=== PATIENT | male | born 1985 | race Caucasian/White ===

== ENCOUNTER 2019-02-11 09:33 | Emergency (ER) | payer OTHER ==
[2019-02-11 09:45] VITALS: RESP 18; TEMP 98.4
[2019-02-11] MEDS ORDERED: SODIUM CHLORIDE 0.9% 1,000 ML IV STA (10:00)
[2019-02-11] MEDS ORDERED: levETIRAcetam IV 1,000 MG in SALINE 1 100ML.BAG IVPB STA (10:00)
--- NOTE | 2019-02-11 10:03 | ED ---
Seizure HPI - General Chief Complaint: Seizure Stated Complaint: Seizure Time Seen by Provider: 02/11/19 09:46 Source: patient, family, EMS, RN notes reviewed, old records reviewed Mode of arrival: EMS Limitations: no limitations - History of Present Illness Initial Comments: Patient is a 33-year-old male with a history of seizure disorder. Patient was previously on Keppra but has been off of it for 2 years. Patient reports that he also takes Xanax daily. He states that he ran out of his medication a few days ago, and hasn't had it for 3 days. Patient had a witnessed tonic-clonic seizure for 1-2 minutes by his mother. He is not his head he was lying on the couch at the time. Patient has had no recent fevers or chills. Patient reports that he has been buying some Xanax off of the street to eye. Patient reports that he does not have a neurologist at this time. Her ports that he's been out of his Xanax he has been having some withdrawal symptoms including shakiness. Patient reports that he takes 1 mg of Xanax in the morning and 1 in the afternoon. - Related Data Home Medications Medication Instructions Recorded Confirmed ALPRAZolam [Xanax] 1 mg PO BID 02/11/19 02/11/19 Buprenorphine HCl/Naloxone HCl 0.25 film SL BID 02/11/19 02/11/19 [Suboxone 8 mg-2 mg Sl Film] Previous Rx's Medication Instructions Recorded levETIRAcetam [Keppra] 500 mg PO TID #21 tab 02/11/19 Allergies Allergy/AdvReac Type Severity Reaction Status Date / Time No Known Allergies Allergy Unverified 02/11/19 09:59 Review of Systems ROS Statement: Those systems with pertinent positive or pertinent negative responses have been documented in the HPI. ROS Other: All systems not noted in ROS Statement are negative. General Exam - General Exam Comments Initial Comments: 33-year-old male. Alert and oriented 3. No significant distress. Limitations: no limitations General appearance: alert, in no apparent distress Head exam: Present: atraumatic, normocephalic, normal inspection Eye exam: Present: normal appearance, PERRL, EOMI. Absent: scleral icterus, conjunctival injection, periorbital swelling ENT exam: Present: normal exam, mucous membranes moist Neck exam: Present: normal inspection. Absent: tenderness, meningismus, lymphadenopathy Respiratory exam: Present: normal lung sounds bilaterally. Absent: respiratory distress, wheezes, rales, rhonchi, stridor Cardiovascular Exam: Present: regular rate, normal rhythm, normal heart sounds. Absent: systolic murmur, diastolic murmur, rubs, gallop, clicks GI/Abdominal exam: Present: soft, normal bowel sounds. Absent: distended, tenderness, guarding, rebound, rigid Extremities exam: Present: normal inspection, full ROM, normal capillary refill. Absent: tenderness, pedal edema, joint swelling, calf tenderness Back exam: Present: normal inspection Neurological exam: Present: alert, oriented X3, CN II-XII intact Psychiatric exam: Present: normal affect, normal mood Course Vital Signs 02/11/19 02/11/19 02/11/19 09:38 10:00 10:30 Temperature 98.4 F Pulse Rate 67 61 57 L Respiratory 18 18 18 Rate Blood Pressure 125/77 125/77 125/77 O2 Sat by Pulse 100 96 98 Oximetry 02/11/19 11:00 Temperature Pulse Rate 57 L Respiratory 18 Rate Blood Pressure 127/76 O2 Sat by Pulse 97 Oximetry Medical Decision Making - Medical Decision Making Patient is a 33-year-old male with history of seizure seizure disorder, as well as history of Xanax use. He presents today after one to 2 minute tonic-clonic seizure. She did not has had. Denies any other pain or injury at this time. He is alert and oriented. His mother witnessed the seizure. Patient reportedly has been out of his Xanax for the past 3 days. He reports that sometimes he buys from the street. He normally has as prescribed by his PCP. The symptoms was given a loading dose of Keppra for a CCU short. He has been off of Keppra for the past 2 years. He reports he took himself off of that. Patient at this time has normal lab work. On EKG. Otherwise appears well reevaluation. We'll discharge the Patient with close follow-up with PCP. Angela steinberg prescription for Keppra until PCP follow-up. - Lab Data Result diagrams: 02/11/19 09:40 02/11/19 09:40 Lab Results 02/11/19 02/11/19 02/11/19 Range/Units 09:40 09:40 10:39 WBC 9.3 (3.8-10.6) k/uL RBC 4.92 (4.30-5.90) m/uL Hgb 13.9 (13.0-17.5) gm/dL Hct 42.1 (39.0-53.0) % MCV 85.7 (80.0-100.0) fL MCH 28.4 (25.0-35.0) pg MCHC 33.1 (31.0-37.0) g/dL RDW 12.7 (11.5-15.5) % Plt Count 203 (150-450) k/uL Neutrophils % 63 % Lymphocytes % 24 % Monocytes % 9 % Eosinophils % 2 % Basophils % 0 % Neutrophils # 5.8 (1.3-7.7) k/uL Lymphocytes # 2.3 (1.0-4.8) k/uL Monocytes # 0.8 (0-1.0) k/uL Eosinophils # 0.2 (0-0.7) k/uL Basophils # 0.0 (0-0.2) k/uL Sodium 140 (137-145) mmol/L Potassium 4.5 (3.5-5.1) mmol/L Chloride 107 (98-107) mmol/L Carbon Dioxide 26 (22-30) mmol/L Anion Gap 7 mmol/L BUN 14 (9-20) mg/dL Creatinine 0.86 (0.66-1.25) mg/dL Est GFR (CKD-EPI)AfAm >90 (>60 ml/min/1.73 sqM) Est GFR (CKD-EPI)NonAf >90 (>60 ml/min/1.73 sqM) Glucose 103 H (74-99) mg/dL Calcium 9.5 (8.4-10.2) mg/dL Total Bilirubin 0.7 (0.2-1.3) mg/dL AST 29 (17-59) U/L ALT 16 L (21-72) U/L Alkaline Phosphatase 75 (38-126) U/L Total Protein 6.7 (6.3-8.2) g/dL Albumin 4.1 (3.5-5.0) g/dL Urine Opiates Screen Not Detected (NotDetected) Ur Oxycodone Screen Not Detected (NotDetected) Urine Methadone Screen Not Detected (NotDetected) Ur Propoxyphene Screen Not Detected (NotDetected) Ur Barbiturates Screen Not Detected (NotDetected) U Tricyclic Antidepress Not Detected (NotDetected) Ur Phencyclidine Scrn Not Detected (NotDetected) Ur Amphetamines Screen Not Detected (NotDetected) U Methamphetamines Scrn Not Detected (NotDetected) U Benzodiazepines Scrn Detected H (NotDetected) Urine Cocaine Screen Not Detected (NotDetected) U Marijuana (THC) Screen Detected H (NotDetected) 02/11/19 10:47 EKG shows sinus break her, otherwise normal EKG. Ventricular rate of 57 bpm. Verbal is 140 ms. QT QTc is 442/439 ms. QRS duration is 100 ms. Disposition Clinical Impression: History of benzodiazepine use, Withdrawal seizures Disposition: ADMITTED IP TO THIS [facility] Condition: Stable Instructions (If sedation given, give patient instructions): Recurrent Seizures in Adults (ED) Additional Instructions: Patient advised to follow-up with primary care physician. Return to the emergency department if any alarming signs or symptoms occur. Take the Keppra as prescribed. Recommend following up with PCP in regards to benzodiazepine use. Prescriptions: levETIRAcetam [Keppra] 500 mg PO TID #21 tab Is patient prescribed a controlled substance at d/c from ED?: No Referrals: Rodriguez Sargent MD [Primary Care Provider] - 1-2 days Time of Disposition: 11:34
[2019-02-11 11:04] LABS: Amphetamine Screen,Urine Not Detected (NotDetected); Barbiturate Screen,Urine Not Detected (NotDetected); Benzodiazepines Screen,Urine Detected (NotDetected); Cocaine Screen,Urine Not Detected (NotDetected); Methadone Screen, Urine Not Detected (NotDetected); Opiate Screen,Urine Not Detected (NotDetected); Oxycodone Screen, Urine Not Detected (NotDetected); Phencyclidine Screen,Urine Not Detected (NotDetected); Tricyclic Antidepressant,Urine Not Detected (NotDetected); Urn Cannabinoid Scrn Detected (NotDetected)
[2019-02-11 11:06] LABS: ALT 16 U/L (21-72); AST 29 U/L (17-59); African American GFR (CKD) >90 (>60 ml/min/1.73 sqM); Albumin 4.1 g/dL (3.5-5.0); Alkaline Phosphatase 75 U/L (38-126); Anion Gap 7 mmol/L; Blood Urea Nitrogen 14 mg/dL (9-20); Calcium 9.5 mg/dL (8.4-10.2); Carbon Dioxide 26 mmol/L (22-30); Chloride 107 mmol/L (98-107); Glucose 103 mg/dL (74-99); Sodium 140 mmol/L (137-145); Total Bilirubin 0.7 mg/dL (0.2-1.3); Total Protein 6.7 g/dL (6.3-8.2)
[2019-02-11 11:08] LABS: Potassium 4.5 mmol/L (3.5-5.1)
[2019-02-11 11:17] LABS: Basophils % (A) 0 %; Eosinophils # (A) 0.2 k/uL (0-0.7); Eosinophils % (A) 2 %; HCT 42.1 % (39.0-53.0); HGB 13.9 gm/dL (13.0-17.5); Lymphocytes # (A) 2.3 k/uL (1.0-4.8); Lymphocytes % (A) 24 %; MCH 28.4 pg (25.0-35.0); MCHC 33.1 g/dL (31.0-37.0); MCV 85.7 fL (80.0-100.0); Mean Platelet Volume 7.5; Monocytes # (A) 0.8 k/uL (0-1.0); Monocytes % (A) 9 %; Neutrophils # (A) 5.8 k/uL (1.3-7.7); Neutrophils % (A) 63 %; Platelet Count 203 k/uL (150-450); RBC 4.92 m/uL (4.30-5.90); RDW 12.7 % (11.5-15.5); WBC 9.3 k/uL (3.8-10.6)
[2019-02-11 11:52] VITALS: BP 126/75; PULSE 60
== END 2019-02-11 11:55 | disposition other institution (70) ==
LOC: EC 09:33
DX: G40.909 Epilepsy, unspecified, not intractable, without status epilepticus (principal); Z86.59 Personal history of other mental and behavioral disorders; Z79.899 Other long term (current) drug therapy
CPT/HCPCS: 36415; 93005; 80053; 85025; 80306; 99285; 96365; J1953

== ENCOUNTER 2019-02-14 15:31 | Emergency (ER) | payer OTHER ==
[2019-02-14 15:37] VITALS: RESP 16
[2019-02-14] MEDS ORDERED: levETIRAcetam 500 MG TAB PO STA (15:45)
--- NOTE | 2019-02-14 15:49 | ED ---
General Adult HPI - General Chief complaint: Seizure Stated complaint: Seizure Time Seen by Provider: 02/14/19 15:38 Source: EMS Mode of arrival: EMS Limitations: no limitations - History of Present Illness Initial comments: Patient is a 33-year-old male with a history of seizure disorder presents with a chief complaint of seizure. The patient states that he does not remember the event, with reportedly had 3-5 minutes seizure, single episode. Patient states the possibilities are Xanax withdraw though he states he last took Xanax was several weeks ago, or stopping his Keppra. Patient says he is trying to stop his medications but is not likely that they make him feel. He says he was diagnosed with seizure disorder at 16 years old. His last seizure was in June. Patient states that he cannot remember the name of his neurologist. Patient denies any other inciting incidents this. - Related Data Home Medications Medication Instructions Recorded Confirmed ALPRAZolam [Xanax] 1 mg PO BID 02/11/19 02/14/19 Buprenorphine HCl/Naloxone HCl 0.25 film SL BID 02/11/19 02/14/19 [Suboxone 8 mg-2 mg Sl Film] Previous Rx's Medication Instructions Recorded levETIRAcetam [Keppra] 500 mg PO TID #21 tab 02/11/19 Allergies Allergy/AdvReac Type Severity Reaction Status Date / Time No Known Allergies Allergy Verified 02/14/19 16:29 Review of Systems ROS Statement: Those systems with pertinent positive or pertinent negative responses have been documented in the HPI. ROS Other: All systems not noted in ROS Statement are negative. Past Medical History Past Medical History: Seizure Disorder History of Any Multi-Drug Resistant Organisms: None Reported Past Surgical History: No Surgical Hx Reported Past Psychological History: No Psychological Hx Reported Smoking Status: Current every day smoker Past Alcohol Use History: Occasional Past Drug Use History: Marijuana General Exam Limitations: no limitations General appearance: alert, in no apparent distress Head exam: Present: atraumatic, normocephalic Eye exam: Present: normal appearance ENT exam: Present: normal exam Neck exam: Present: normal inspection Respiratory exam: Present: normal lung sounds bilaterally. Absent: respiratory distress, wheezes Cardiovascular Exam: Present: regular rate, normal rhythm GI/Abdominal exam: Present: soft. Absent: distended, tenderness Rectal exam: Present: deferred Extremities exam: Present: normal inspection Back exam: Present: normal inspection Neurological exam: Present: alert, oriented X3, CN II-XII intact Psychiatric exam: Present: normal affect, normal mood Skin exam: Present: warm, dry, intact Course Vital Signs 02/14/19 02/14/19 02/14/19 15:33 15:40 15:50 Pulse Rate 80 77 Respiratory 16 18 Rate Blood Pressure 155/89 155/89 147/88 O2 Sat by Pulse 98 98 Oximetry 02/14/19 02/14/19 02/14/19 16:00 17:00 17:30 Pulse Rate 80 90 77 Respiratory 20 20 16 Rate Blood Pressure 147/88 161/89 157/83 O2 Sat by Pulse 99 Oximetry 02/14/19 17:50 Pulse Rate 77 Respiratory 19 Rate Blood Pressure 140/90 O2 Sat by Pulse 98 Oximetry Medical Decision Making - Medical Decision Making Patient presents with chief complaint of seizure. On initial evaluation, vitals are stable, patient is in no acute distress. He is awake and alert, it is questions appropriately. Patient states that he tried to self wean himself from Keppra. He denies any other constitutional symptoms. Patient will be evaluated basic labs including urinalysis, and chest x-ray. He was given his regular dose of Keppra in the emergency department. 5:19 PM Lab evaluation this patient is unremarkable. On reevaluation, the patient now has family and friends with him. The patient states that he needs to go somewhere where he can detox. Patient now admitting to illicit drug use including Suboxone, Xanax which she is getting off the street. Patient will be evaluated by CPS. The family states they already have a plan to get him into rehab which would require him to go to police station [facility] for intake. I stated that we will consult our licensed master social worker to see if we have other resources here to help facilitate. 7:06 PM Patient was evaluated by CPS licensed master social worker. At this time, the safest plan is to discharge the patient with his family so that he can receive treatment at [facility]. They are in a plan set. Patient will be discharged with family. - Lab Data Result diagrams: 02/14/19 15:40 02/14/19 15:40 Lab Results 02/14/19 02/14/19 02/14/19 Range/Units 15:40 15:40 15:40 WBC 12.4 H (3.8-10.6) k/uL RBC 4.92 (4.30-5.90) m/uL Hgb 13.7 (13.0-17.5) gm/dL Hct 41.7 (39.0-53.0) % MCV 84.7 (80.0-100.0) fL MCH 27.9 (25.0-35.0) pg MCHC 32.9 (31.0-37.0) g/dL RDW 12.7 (11.5-15.5) % Plt Count 230 (150-450) k/uL Neutrophils % 73 % Lymphocytes % 18 % Monocytes % 6 % Eosinophils % 0 % Basophils % 0 % Neutrophils # 9.1 H (1.3-7.7) k/uL Lymphocytes # 2.3 (1.0-4.8) k/uL Monocytes # 0.8 (0-1.0) k/uL Eosinophils # 0.1 (0-0.7) k/uL Basophils # 0.0 (0-0.2) k/uL Sodium 139 (137-145) mmol/L Potassium 3.9 (3.5-5.1) mmol/L Chloride 104 (98-107) mmol/L Carbon Dioxide 22 (22-30) mmol/L Anion Gap 13 mmol/L BUN 20 (9-20) mg/dL Creatinine 0.89 (0.66-1.25) mg/dL Est GFR (CKD-EPI)AfAm >90 (>60 ml/min/1.73 sqM) Est GFR (CKD-EPI)NonAf >90 (>60 ml/min/1.73 sqM) Glucose 132 H (74-99) mg/dL Calcium 9.8 (8.4-10.2) mg/dL Urine Color Yellow Urine Appearance Clear (Clear) Urine pH 5.5 (5.0-8.0) Ur Specific [place] 1.021 (1.001-1.035) Urine Protein Trace H (Negative) Urine Glucose (UA) Negative (Negative) Urine Ketones 1+ H (Negative) Urine Blood Trace H (Negative) Urine Nitrite Negative (Negative) Urine Bilirubin Negative (Negative) Urine Urobilinogen 3.0 (<2.0) mg/dL Ur Leukocyte Esterase Negative (Negative) Urine WBC 1 (0-5) /hpf Amorphous Sediment Rare H (None) /hpf Hyaline Casts 13 H (0-2) /lpf Urine Mucus Rare H (None) /hpf Disposition Clinical Impression: Breakthrough seizure, Polysubstance abuse Disposition: HOME SELF-CARE Condition: Good Instructions (If sedation given, give patient instructions): Recurrent Seizures in Adults (ED) Is patient prescribed a controlled substance at d/c from ED?: No Referrals: Rodriguez Sargent MD [Primary Care Provider] - 1-2 days
[2019-02-14 16:03] LABS: Basophils % (A) 0 %; Eosinophils # (A) 0.1 k/uL (0-0.7); Eosinophils % (A) 0 %; HCT 41.7 % (39.0-53.0); HGB 13.7 gm/dL (13.0-17.5); Lymphocytes # (A) 2.3 k/uL (1.0-4.8); Lymphocytes % (A) 18 %; MCH 27.9 pg (25.0-35.0); MCHC 32.9 g/dL (31.0-37.0); MCV 84.7 fL (80.0-100.0); Mean Platelet Volume 7.3; Monocytes # (A) 0.8 k/uL (0-1.0); Monocytes % (A) 6 %; Neutrophils # (A) 9.1 k/uL (1.3-7.7); Neutrophils % (A) 73 %; Platelet Count 230 k/uL (150-450); RBC 4.92 m/uL (4.30-5.90); RDW 12.7 % (11.5-15.5); WBC 12.4 k/uL (3.8-10.6)
[2019-02-14 16:11] LABS: Potassium 3.9 mmol/L (3.5-5.1)
[2019-02-14 16:12] LABS: African American GFR (CKD) >90 (>60 ml/min/1.73 sqM); Amorphous Sediment,Urine Rare /hpf; Anion Gap 13 mmol/L; Appearance,Urine Clear (Clear); Bilirubin,Urine Negative (Negative); Blood Urea Nitrogen 20 mg/dL (9-20); Blood,Urine Trace (Negative); Calcium 9.8 mg/dL (8.4-10.2); Carbon Dioxide 22 mmol/L (22-30); Chloride 104 mmol/L (98-107); Color,Urine Yellow; Glucose 132 mg/dL (74-99); Glucose,Urine (UA) Negative (Negative); Hyaline Casts,Urine 13 /lpf (0-2); Ketones,Urine 1+ (Negative); Leukocyte Esterase,Urine Negative (Negative); Mucus,Urine Rare /hpf; Nitrite,Urine Negative (Negative); PH, Urine 5.5 (5.0-8.0); Protein,Urine Trace (Negative); Sodium 139 mmol/L (137-145); Specific Gravity,Urine 1.021 (1.001-1.035); WBC,Urine 1 /hpf (0-5)
--- NOTE | 2019-02-14 16:29 | XR ---
EXAMINATION TYPE: XR chest 2V DATE OF EXAM: 02/14/2019 COMPARISON: 10/18/2009 HISTORY: Seizure TECHNIQUE: Frontal and lateral views of the chest are obtained. FINDINGS: Heart and mediastinum are normal. Lungs are clear. Diaphragm is normal. There are chest le ads. Bony thorax appears normal. IMPRESSION: Normal chest. No change.
[2019-02-14] MEDS ORDERED: chlordiazePOXIDE 25 MG CAP PO STA (17:18)
[2019-02-14] MEDS ORDERED: cloNIDine HCL 0.2 MG TAB PO STA (17:18)
[2019-02-14 19:43] VITALS: BP 138/78; PULSE 74; TEMP 98.1
== END 2019-02-14 19:27 | disposition home or self-care (01) ==
LOC: EC 15:31
DX: G40.909 Epilepsy, unspecified, not intractable, without status epilepticus (principal); F19.10 Other psychoactive substance abuse, uncomplicated; F17.200 Nicotine dependence, unspecified, uncomplicated; Z79.899 Other long term (current) drug therapy
CPT/HCPCS: 36415; 71046; 80048; 81001; 85025; 99284

== ENCOUNTER 2019-10-11 20:42 | Emergency (ER) | payer OTHER ==
[2019-10-11] MEDS ORDERED: ALPRAZolam 0.25 MG TAB PO STA (20:59)
--- NOTE | 2019-10-11 21:01 | ED ---
General Adult HPI - General Chief complaint: Anxiety Stated complaint: Anxiety Time Seen by Provider: 10/11/19 20:50 Source: patient Mode of arrival: ambulatory Limitations: no limitations - History of Present Illness Initial comments: Dictation was produced using [employer] dictation software. please excuse any grammatical, word or spelling errors. Chief Complaint: 34-year-old male presents with anxiety reaction. History of Present Illness: Patient is a 34-year-old male he states that he has a couple hours of anxiety. Patient states he went to the gym and 8. He states that after that he felt some pain. He localizes the pain to his substernal chest with radiation to the bilateral lateral thoraces. Denies any radiation to the shoulders or jaw. No radiation down any extremities. No associated diaphoresis. Patient states his pain was little more severe prior to arrival however it's improved. He still states that he feels some pressure states that it is not worse with deep inspiration. Patient denies any cardiac history. He states he has history of anxiety. He has been on BuSpar and Xanax several years ago prescribed by his primary care physician. He states that his symptoms today are typical of his anxiety symptoms. Reports that his symptoms make him feel short of breath. The ROS documented in this emergency department record has been reviewed and confirmed by me. Those systems with pertinent positive or negative responses have been documented in the HPI. All other systems are other negative and/or noncontributory. PHYSICAL EXAM: General Impression: Alert and oriented x3, not in acute distress HEENT: Normocephalic atraumatic, extra-ocular movements intact, pupils equal and reactive to light bilaterally, mucous membranes moist. Cardiovascular: Heart regular rate and rhythm, S1&S2 audible, no murmurs, rubs or gallops Chest: Lungs clear to auscultation bilaterally, no rhonchi, no wheeze, no rales Abdomen: Bowel sounds present, abdomen soft, non-tender, non-distended, no organomegaly Musculoskeletal: Pulses present and equal in all extremities, no peripheral edema Motor: no focal deficits noted Neurological: CN II-XII grossly intact, no focal motor or sensory deficits noted Skin: Intact with no visualized rashes Psych: Normal affect and mood ED course: 34-year-old male presents with chest pain, shortness of breath. He states that his symptoms are typical of his anxiety.. Signs upon arrival are within acceptable limits. Clinical presentation concerning for atypical chest pain with typical features. Lab data evaluation obtained. CBC, coag panel, metabolic panel is unremarkable. troponin is negative. Chest x-ray is unremarkable. Patient reevaluated bedside. Patient reports for full improvement of symptoms. Patient will be discharged. Patient told to follow-up with primary care physician. Return parameters discussed. No high-risk features. EKG interpretation: Ventricular rate 84, normal sinus rhythm,. Interval 146, QRS 106, QTC 456. No OR prolongation, no QTC prolongation, no ST or T-wave changes noted. EKG compared to 02/11/2019 showing no changes. Overall, this EKG is unremarkable - Related Data Home Medications Medication Instructions Recorded Confirmed ALPRAZolam [Xanax] 1 mg PO BID 02/11/19 02/14/19 Buprenorphine HCl/Naloxone HCl 0.25 film SL BID 02/11/19 02/14/19 [Suboxone 8 mg-2 mg Sl Film] Previous Rx's Medication Instructions Recorded levETIRAcetam [Keppra] 500 mg PO TID #21 tab 02/11/19 Penicillin V Potassium [Pen Vee K] 500 mg PO QID 7 Days #28 tablet 09/04/19 Allergies Allergy/AdvReac Type Severity Reaction Status Date / Time No Known Allergies Allergy Verified 10/11/19 20:49 Review of Systems ROS Statement: Those systems with pertinent positive or pertinent negative responses have been documented in the HPI. ROS Other: All systems not noted in ROS Statement are negative. Past Medical History Past Medical History: Seizure Disorder History of Any Multi-Drug Resistant Organisms: None Reported Past Surgical History: No Surgical Hx Reported Past Psychological History: Anxiety Smoking Status: Current every day smoker Past Alcohol Use History: None Reported Past Drug Use History: None Reported General Exam Limitations: no limitations Course Vital Signs 10/11/19 20:43 Temperature 98.4 F Pulse Rate 93 Respiratory 17 Rate Blood Pressure 173/70 O2 Sat by Pulse 98 Oximetry Medical Decision Making - Lab Data Result diagrams: 10/11/19 21:10 10/11/19 21:10 Lab Results 10/11/19 10/11/19 10/11/19 Range/Units 21:10 21:10 21:10 WBC 8.8 (3.8-10.6) k/uL RBC 4.76 (4.30-5.90) m/uL Hgb 13.5 (13.0-17.5) gm/dL Hct 40.5 (39.0-53.0) % MCV 85.1 (80.0-100.0) fL MCH 28.4 (25.0-35.0) pg MCHC 33.4 (31.0-37.0) g/dL RDW 12.2 (11.5-15.5) % Plt Count 224 (150-450) k/uL Neutrophils % 63 % Lymphocytes % 27 % Monocytes % 5 % Eosinophils % 2 % Basophils % 0 % Neutrophils # 5.5 (1.3-7.7) k/uL Lymphocytes # 2.4 (1.0-4.8) k/uL Monocytes # 0.5 (0-1.0) k/uL Eosinophils # 0.2 (0-0.7) k/uL Basophils # 0.0 (0-0.2) k/uL PT 10.1 (9.0-12.0) sec INR 1.0 (<1.2) APTT 25.6 (22.0-30.0) sec Sodium 140 (137-145) mmol/L Potassium 3.8 (3.5-5.1) mmol/L Chloride 104 (98-107) mmol/L Carbon Dioxide 26 (22-30) mmol/L Anion Gap 10 mmol/L BUN 21 H (9-20) mg/dL Creatinine 1.08 (0.66-1.25) mg/dL Est GFR (CKD-EPI)AfAm >90 (>60 ml/min/1.73 sqM) Est GFR (CKD-EPI)NonAf >90 (>60 ml/min/1.73 sqM) Glucose 107 H (74-99) mg/dL Calcium 9.6 (8.4-10.2) mg/dL Magnesium 1.9 (1.6-2.3) mg/dL Total Bilirubin 0.3 (0.2-1.3) mg/dL AST 34 (17-59) U/L ALT 21 (4-49) U/L Alkaline Phosphatase 112 (38-126) U/L Troponin I (0.000-0.034) ng/mL Total Protein 7.2 (6.3-8.2) g/dL Albumin 4.6 (3.5-5.0) g/dL 10/11/19 Range/Units 21:10 WBC (3.8-10.6) k/uL RBC (4.30-5.90) m/uL Hgb (13.0-17.5) gm/dL Hct (39.0-53.0) % MCV (80.0-100.0) fL MCH (25.0-35.0) pg MCHC (31.0-37.0) g/dL RDW (11.5-15.5) % Plt Count (150-450) k/uL Neutrophils % % Lymphocytes % % Monocytes % % Eosinophils % % Basophils % % Neutrophils # (1.3-7.7) k/uL Lymphocytes # (1.0-4.8) k/uL Monocytes # (0-1.0) k/uL Eosinophils # (0-0.7) k/uL Basophils # (0-0.2) k/uL PT (9.0-12.0) sec INR (<1.2) APTT (22.0-30.0) sec Sodium (137-145) mmol/L Potassium (3.5-5.1) mmol/L Chloride (98-107) mmol/L Carbon Dioxide (22-30) mmol/L Anion Gap mmol/L BUN (9-20) mg/dL Creatinine (0.66-1.25) mg/dL Est GFR (CKD-EPI)AfAm (>60 ml/min/1.73 sqM) Est GFR (CKD-EPI)NonAf (>60 ml/min/1.73 sqM) Glucose (74-99) mg/dL Calcium (8.4-10.2) mg/dL Magnesium (1.6-2.3) mg/dL Total Bilirubin (0.2-1.3) mg/dL AST (17-59) U/L ALT (4-49) U/L Alkaline Phosphatase (38-126) U/L Troponin I <0.012 (0.000-0.034) ng/mL Total Protein (6.3-8.2) g/dL Albumin (3.5-5.0) g/dL Disposition Clinical Impression: Acute anxiety, Chest pain Disposition: HOME SELF-CARE Instructions (If sedation given, give patient instructions): Generalized Anxiety Disorder (ED), Chest Pain (ED) Additional Instructions: Today you are evaluated for chest pain. He do not have any high-risk features. Your workup was negative. Please follow-up with primary care physician. Return to the emergency Department with any worsening symptoms. Is patient prescribed a controlled substance at d/c from ED?: No Referrals: Rodriguez Sargent MD [Primary Care Provider] - 1-2 days Time of Disposition: 21:54
[2019-10-11 21:24] LABS: Basophils % (A) 0 %; Eosinophils # (A) 0.2 k/uL (0-0.7); Eosinophils % (A) 2 %; HCT 40.5 % (39.0-53.0); HGB 13.5 gm/dL (13.0-17.5); Lymphocytes # (A) 2.4 k/uL (1.0-4.8); Lymphocytes % (A) 27 %; MCH 28.4 pg (25.0-35.0); MCHC 33.4 g/dL (31.0-37.0); MCV 85.1 fL (80.0-100.0); Mean Platelet Volume 7.9; Monocytes # (A) 0.5 k/uL (0-1.0); Monocytes % (A) 5 %; Neutrophils # (A) 5.5 k/uL (1.3-7.7); Neutrophils % (A) 63 %; Platelet Count 224 k/uL (150-450); RBC 4.76 m/uL (4.30-5.90); RDW 12.2 % (11.5-15.5); WBC 8.8 k/uL (3.8-10.6)
[2019-10-11 21:32] LABS: ALT 21 U/L (4-49); AST 34 U/L (17-59); African American GFR (CKD) >90 (>60 ml/min/1.73 sqM); Albumin 4.6 g/dL (3.5-5.0); Alkaline Phosphatase 112 U/L (38-126); Anion Gap 10 mmol/L; Blood Urea Nitrogen 21 mg/dL (9-20); Calcium 9.6 mg/dL (8.4-10.2); Carbon Dioxide 26 mmol/L (22-30); Chloride 104 mmol/L (98-107); Glucose 107 mg/dL (74-99); Magnesium 1.9 mg/dL (1.6-2.3); Non-African American GFR(CKD) >90 (>60 ml/min/1.73 sqM); Potassium 3.8 mmol/L (3.5-5.1); Sodium 140 mmol/L (137-145); Total Bilirubin 0.3 mg/dL (0.2-1.3); Total Protein 7.2 g/dL (6.3-8.2)
[2019-10-11 21:36] LABS: Partial Thromboplastin Time 25.6 sec (22.0-30.0); Prothrombin Time 10.1 sec (9.0-12.0)
--- NOTE | 2019-10-11 21:38 | XR ---
EXAMINATION TYPE: XR chest 2V DATE OF EXAM: 10/11/2019 COMPARISON: 02/14/2019 HISTORY: Chest pain TECHNIQUE: FINDINGS: Heart and mediastinum are normal. Lungs are clear. Diaphragm is normal. Bony thorax appears normal. IMPRESSION: Normal chest. No change.
[2019-10-11 22:09] VITALS: BP 124/76; PULSE 64; RESP 16; TEMP 97.6
== END 2019-10-11 22:08 | disposition home or self-care (01) ==
LOC: EC 20:42
DX: F41.9 Anxiety disorder, unspecified (principal); R07.89 Other chest pain; R06.02 Shortness of breath; F17.200 Nicotine dependence, unspecified, uncomplicated; Z79.899 Other long term (current) drug therapy
CPT/HCPCS: 36415; 71046; 80053; 83735; 84484; 85025; 85610; 85730; 93005; 99284

== ENCOUNTER 2020-05-28 14:42 | Emergency (ER) | payer BC, OTHER ==
[2020-05-28 14:46] VITALS: BP 150/89; PULSE 84; RESP 18; TEMP 98.3
--- NOTE | 2020-05-28 15:31 | CT ---
EXAMINATION TYPE: CT sinus wo con DATE OF EXAM: 05/28/2020 COMPARISON: CT brain October 18, 2009 HISTORY: Rt facial swelling, started yesterday. No recent dental work CT DLP: 429.7 mGycm. Automated Exposure Control for Dose Reduction was Utilized. TECHNIQUE: CT scan of the sinuses is performed with IV contrast, axial images are obtained, coronal r eformatted images are also reviewed. Patient injected with 100 cc Omnipaque 300. FINDINGS: Mild to moderate mucosal thickening in the right maxillary sinus is now present. [id number] muc osal thickening involving right anterior ethmoid sinuses. Mild mucosal thickening inferior left maxil beatriz sinus. The ostiomeatal complex is occluded on the right on the coronal images. Patency on the l eft is present. Visualized portion of mastoid air cells show no abnormal opacification. The globes are intact bilate rally. Visualized portion of brain is unremarkable. Focal moderate ill-defined fluid and fat stranding along with subcutaneous edema and skin thickening over the right maxillary sinus extending over the right zygoma or cheek extending inferiorly to subma ndibular regions partially imaged. No well-formed fluid collection or drainable abscess. No bony dest ruction. IMPRESSION: Fairly moderate right-sided soft tissue infection and/or cellulitis partially imaged on t his study overlying the right maxillary sinus, maxilla, and buccal region. No drainable fluid collect ion or abscess.
[2020-05-28] MEDS ORDERED: cefTRIAXone 1,000 MG VIAL (IM USE) IM STA (15:53)
--- NOTE | 2020-05-28 16:02 | ED ---
ENT HPI - General Chief complaint: Eye Problems Stated complaint: RT eye swelling Time Seen by Provider: 05/28/20 14:47 Source: patient Mode of arrival: ambulatory Limitations: no limitations - History of Present Illness Initial comments: Patient is a 34-year-old male presenting to the emergency Department with complaints of swelling underneath his right eye since yesterday. Patient states he has had some common cold symptoms over the last few days but then yesterday noticed swelling underneath his right eye and on his right cheek. He states he does not have any really pain there, he denies any fever, chills, nausea, vomiting. He states he does have significant dental caries denies any dental pain or trouble with chewing at this time. He denies having a headache, blurry vision. He denies any facial trauma. He has no further complaints at this time. Upon arrival to the ER, patient is afebrile. - Related Data Home Medications Medication Instructions Recorded Confirmed ALPRAZolam [Xanax] 1 mg PO BID 02/11/19 02/14/19 Buprenorphine HCl/Naloxone HCl 0.25 film SL BID 02/11/19 02/14/19 [Suboxone 8 mg-2 mg Sl Film] Previous Rx's Medication Instructions Recorded levETIRAcetam [Keppra] 500 mg PO TID #21 tab 02/11/19 Penicillin V Potassium [Pen Vee K] 500 mg PO QID 7 Days #28 tablet 09/04/19 Clindamycin HCl 300 mg PO Q8H 7 Days #21 cap 05/28/20 Clindamycin [Cleocin] 150 mg PO Q8H 7 Days #21 capsule 05/28/20 Allergies Allergy/AdvReac Type Severity Reaction Status Date / Time No Known Allergies Allergy Verified 05/28/20 14:46 Review of Systems ROS Statement: Those systems with pertinent positive or pertinent negative responses have been documented in the HPI. ROS Other: All systems not noted in ROS Statement are negative. Past Medical History Past Medical History: Seizure Disorder History of Any Multi-Drug Resistant Organisms: None Reported Past Surgical History: No Surgical Hx Reported Past Psychological History: Anxiety Smoking Status: Never smoker Past Alcohol Use History: None Reported Past Drug Use History: None Reported General Exam - General Exam Comments Initial Comments: GENERAL: Patient is well-developed and well-nourished. Patient is nontoxic and in no acute distress. HEAD: Atraumatic, normocephalic. EYES: Pupils equal round and reactive to light, extraocular movements intact, sclera anicteric, conjunctiva are normal. Eyelids were unremarkable. Patient has moderate swelling underneath the right eye into the right cheek/maxillary area. ENT: TMs normal, nares patent, oropharynx clear without exudates. Moist mucous membranes. Patient has numerous dental caries, poor dental hygiene, no pain with palpation or visible abscess seen. NECK: Normal range of motion, supple without lymphadenopathy or JVD. LUNGS: Unlabored respirations. Breath sounds clear to auscultation bilaterally and equal. No wheezes rales or rhonchi. HEART: Regular rate and rhythm without murmurs, rubs or gallops. ABDOMEN: Soft, nontender, normoactive bowel sounds. No guarding, no rebound. No masses appreciated. : Deferred MUSCULOSKELETAL: Normal extremities with adequate strength and normal range of motion, no pitting or edema. No clubbing or cyanosis. NEUROLOGICAL: Patient is alert and oriented x 3. Normal speech, normal gait. PSYCH: Normal mood, normal affect. SKIN: Warm, Dry, normal turgor, no rashes or lesions noted. Limitations: no limitations Course Vital Signs 05/28/20 14:43 Temperature 98.3 F Pulse Rate 84 Respiratory 18 Rate Blood Pressure 150/89 O2 Sat by Pulse 99 Oximetry Medical Decision Making - Medical Decision Making Patient is a 34-year-old male here for swelling of his right maxillary area since last night. No fevers, his vitals are stable. Patient has little pain with palpation of this area. I did do a CT without contrast which shows moderate cellulitis of the right maxillary area. It is hard to determine if this is sinus related or possibly from his dental caries. I will give him 1 g of Rocephin in the ER and started him on clindamycin to cover for both. Patient is agreement with this plan of care. He is stable for discharge. Strict return parameters were discussed with the patient and he verbalized understanding. Case discussed with Dr. Fallon. Disposition Clinical Impression: Cellulitis of right external cheek, Dental caries Disposition: HOME SELF-CARE Condition: Stable Instructions (If sedation given, give patient instructions): Cellulitis (ED) Additional Instructions: Please return to the Emergency Department if symptoms worsen or any other concerns. CT of the face today reveals cellulitis. Take antibiotics as prescribed, finish all medications. Also taking ibuprofen, apply ice to the area for the swelling. Follow up with PCP and dentist. Prescriptions: Clindamycin [Cleocin] 150 mg PO Q8H 7 Days #21 capsule Clindamycin HCl 300 mg PO Q8H 7 Days #21 cap Is patient prescribed a controlled substance at d/c from ED?: No Referrals: Rodriguez Sargent MD [Primary Care Provider] - 1-2 days
== END 2020-05-28 16:06 | disposition home or self-care (01) ==
LOC: EC 14:42
DX: L03.211 Cellulitis of face (principal); K02.9 Dental caries, unspecified; F41.9 Anxiety disorder, unspecified; Z79.899 Other long term (current) drug therapy
CPT/HCPCS: 70486; 96372; 99283; J0696

== ENCOUNTER 2021-06-03 03:46 | Emergency (ER) | payer BC ==
[2021-06-03 03:57] VITALS: RESP 18
[2021-06-03] MEDS ORDERED: SODIUM CHLORIDE 0.9% 1,000 ML IV ONE (04:32)
[2021-06-03] MEDS ORDERED: AMOXIC-POT CLAV 875-125MG 1 EACH TAB PO STA (04:32)
[2021-06-03] MEDS ORDERED: ONDANSETRON 4 MG/2 ML VIAL IVP STA (04:32)
--- NOTE | 2021-06-03 04:47 | ED ---
Nausea/Vomiting/Diarrhea HPI - General Chief complaint: Nausea/Vomiting/Diarrhea Stated complaint: Vomiting Time Seen by Provider: 06/03/21 04:06 Source: patient Mode of arrival: ambulatory Limitations: no limitations - History of Present Illness Initial comments: Patient is 35-year-old man who has had nausea and vomiting going back approximately 12 hours. He states that now he is to the point where he cannot keep any fluids down. The patient has a little bit of upper abdominal cramping. No change in bowel movements. No hematemesis. In addition, patient notes he believes he has a tooth infection starting. He notes he has multiple caries and now is having some pain to the upper incisors. There has also been swelling for the past couple of days. No fever or chills. MD complaint: nausea, vomiting Onset/Timin -: hour(s) Description of Vomiting: food contents Associated Abdominal Pain: Yes Location: epigastric Severity: mild Quality: cramping Consistency: intermittent Improves with: none Worsens with: vomiting Associated Symptoms: denies other symptoms - Related Data Home Medications Medication Instructions Recorded Confirmed ALPRAZolam [Xanax] 1 mg PO BID 02/11/19 02/14/19 Buprenorphine HCl/Naloxone HCl 0.25 film SL BID 02/11/19 02/14/19 [Suboxone 8 mg-2 mg Sl Film] Previous Rx's Medication Instructions Recorded levETIRAcetam [Keppra] 500 mg PO TID #21 tab 02/11/19 Penicillin V Potassium [Pen Vee K] 500 mg PO QID 7 Days #28 tablet 09/04/19 Clindamycin HCl 300 mg PO Q8H 7 Days #21 cap 05/28/20 Clindamycin [Cleocin] 150 mg PO Q8H 7 Days #21 capsule 05/28/20 Amoxicillin/Potassium Clav 1 tab PO Q12HR 1 Days #14 tab 06/03/21 [Augmentin 875-125 Tablet] Ondansetron Odt [Zofran ODT] 4 mg PO Q8HR PRN #10 tab 06/03/21 Allergies Allergy/AdvReac Type Severity Reaction Status Date / Time No Known Allergies Allergy Verified 06/03/21 03:57 Review of Systems ROS Statement: Those systems with pertinent positive or pertinent negative responses have been documented in the HPI. ROS Other: All systems not noted in ROS Statement are negative. Constitutional: Denies: fever, chills Eyes: Denies: eye pain, vision change ENT: Reports: dental pain. Denies: throat pain, congestion Respiratory: Denies: cough, dyspnea Cardiovascular: Denies: chest pain, palpitations, edema Gastrointestinal: Reports: abdominal pain, nausea, vomiting. Denies: diarrhea, constipation, melena, hematochezia Genitourinary: Denies: dysuria, hematuria, testicular pain, testicular mass Musculoskeletal: Denies: back pain Skin: Denies: rash Neurological: Denies: headache, weakness Past Medical History Past Medical History: Seizure Disorder History of Any Multi-Drug Resistant Organisms: None Reported Past Surgical History: No Surgical Hx Reported Past Psychological History: Anxiety Smoking Status: Current every day smoker Past Alcohol Use History: None Reported Past Drug Use History: Marijuana General Exam Limitations: no limitations General appearance: alert, in no apparent distress Head exam: Present: atraumatic, normocephalic Eye exam: Present: normal appearance Neck exam: Present: normal inspection, full ROM. Absent: tenderness Respiratory exam: Present: normal lung sounds bilaterally. Absent: respiratory distress, wheezes, rales, rhonchi, stridor Cardiovascular Exam: Present: regular rate, normal rhythm, normal heart sounds. Absent: systolic murmur, diastolic murmur, rubs, gallop GI/Abdominal exam: Present: soft. Absent: distended, tenderness, guarding, rebound, rigid, mass Extremities exam: Present: normal inspection, normal capillary refill. Absent: pedal edema, calf tenderness Back exam: Present: normal inspection. Absent: CVA tenderness (R), CVA tenderness (L) Neurological exam: Present: alert Skin exam: Present: warm, dry, intact, normal color. Absent: rash Course Vital Signs 06/03/21 06/03/21 03:53 06:30 Temperature 99.2 F 98.9 F Pulse Rate 91 89 Respiratory 18 18 Rate Blood Pressure 113/72 118/77 O2 Sat by Pulse 99 99 Oximetry Medical Decision Making - Medical Decision Making Patient has had control symptoms with medications here. Patient does have dental infection but no organized abscess yet. We'll start antibiotics and have patient with close follow-up, discussed return parameters here otherwise to follow with oral surgeon as long as there is been no improvement. - Lab Data Result diagrams: 06/03/21 04:49 06/03/21 04:49 Lab Results 06/03/21 06/03/21 Range/Units 04:49 04:49 WBC 14.5 H (3.8-10.6) k/uL RBC 4.40 (4.30-5.90) m/uL Hgb 13.6 (13.0-17.5) gm/dL Hct 39.6 (39.0-53.0) % MCV 89.9 (80.0-100.0) fL MCH 30.9 (25.0-35.0) pg MCHC 34.4 (31.0-37.0) g/dL RDW 13.1 (11.5-15.5) % Plt Count 258 (150-450) k/uL MPV 7.6 Neutrophils % 84 % Lymphocytes % 9 % Monocytes % 6 % Eosinophils % 1 % Basophils % 0 % Neutrophils # 12.1 H (1.3-7.7) k/uL Lymphocytes # 1.3 (1.0-4.8) k/uL Monocytes # 0.8 (0-1.0) k/uL Eosinophils # 0.1 (0-0.7) k/uL Basophils # 0.0 (0-0.2) k/uL Sodium 140 (137-145) mmol/L Potassium 3.5 (3.5-5.1) mmol/L Chloride 101 (98-107) mmol/L Carbon Dioxide 26 (22-30) mmol/L Anion Gap 13 mmol/L BUN 16 (9-20) mg/dL Creatinine 0.77 (0.66-1.25) mg/dL Est GFR (CKD-EPI)AfAm >90 (>60 ml/min/1.73 sqM) Est GFR (CKD-EPI)NonAf >90 (>60 ml/min/1.73 sqM) Glucose 117 H (74-99) mg/dL Calcium 9.8 (8.4-10.2) mg/dL Total Bilirubin 0.6 (0.2-1.3) mg/dL AST 19 (17-59) U/L ALT 15 (4-49) U/L Alkaline Phosphatase 108 (38-126) U/L Total Protein 7.4 (6.3-8.2) g/dL Albumin 4.6 (3.5-5.0) g/dL Disposition Clinical Impression: Nausea and vomiting, Infected dental caries Disposition: HOME SELF-CARE Condition: Good Instructions (If sedation given, give patient instructions): Dental Abscess (ED), Acute Nausea and Vomiting (ED) Prescriptions: Amoxicillin/Potassium Clav [Augmentin 875-125 Tablet] 1 tab PO Q12HR 1 Days #14 tab Ondansetron Odt [Zofran ODT] 4 mg PO Q8HR PRN #10 tab PRN Reason: Nausea Is patient prescribed a controlled substance at d/c from ED?: Yes When asked, does pt state using other controlled substances?: No If prescribed controlled substance>3 days was MAPS reviewed?: Prescribed <3 Days If opioid is for acute pain is fill amount 7 days or less?: Yes If Rx opioid, was Start Talking consent form obtained?: Yes Referrals: Rodriguez Sargent MD [Primary Care Provider] - 1-2 days Christopher Paula DDS [STAFF PHYSICIAN] - 1-2 days
[2021-06-03 04:59] LABS: Basophils % (A) 0 %; Eosinophils # (A) 0.1 k/uL (0-0.7); Eosinophils % (A) 1 %; HCT 39.6 % (39.0-53.0); HGB 13.6 gm/dL (13.0-17.5); Lymphocytes # (A) 1.3 k/uL (1.0-4.8); Lymphocytes % (A) 9 %; MCH 30.9 pg (25.0-35.0); MCHC 34.4 g/dL (31.0-37.0); MCV 89.9 fL (80.0-100.0); Mean Platelet Volume 7.6; Monocytes # (A) 0.8 k/uL (0-1.0); Monocytes % (A) 6 %; Neutrophils # (A) 12.1 k/uL (1.3-7.7); Neutrophils % (A) 84 %; Platelet Count 258 k/uL (150-450); RDW 13.1 % (11.5-15.5); WBC 14.5 k/uL (3.8-10.6)
[2021-06-03 05:09] LABS: ALT 15 U/L (4-49); AST 19 U/L (17-59); African American GFR (CKD) >90 (>60 ml/min/1.73 sqM); Albumin 4.6 g/dL (3.5-5.0); Alkaline Phosphatase 108 U/L (38-126); Anion Gap 13 mmol/L; Blood Urea Nitrogen 16 mg/dL (9-20); Calcium 9.8 mg/dL (8.4-10.2); Carbon Dioxide 26 mmol/L (22-30); Chloride 101 mmol/L (98-107); Glucose 117 mg/dL (74-99); Non-African American GFR(CKD) >90 (>60 ml/min/1.73 sqM); Potassium 3.5 mmol/L (3.5-5.1); Sodium 140 mmol/L (137-145); Total Bilirubin 0.6 mg/dL (0.2-1.3); Total Protein 7.4 g/dL (6.3-8.2)
[2021-06-03 06:33] VITALS: BP 118/77; PULSE 89; TEMP 98.9
== END 2021-06-03 06:31 | disposition home or self-care (01) ==
LOC: EC 03:46
DX: R11.2 Nausea with vomiting, unspecified (principal); K02.9 Dental caries, unspecified; G40.909 Epilepsy, unspecified, not intractable, without status epilepticus; F41.9 Anxiety disorder, unspecified; F17.200 Nicotine dependence, unspecified, uncomplicated; F12.90 Cannabis use, unspecified, uncomplicated
CPT/HCPCS: 36415; 80053; 85025; 99284; 96374; 96361; J2405

== ENCOUNTER 2022-08-11 05:31 | Emergency (ER) | payer BC ==
[2022-08-11 05:47] VITALS: RESP 16
--- NOTE | 2022-08-11 06:25 | ED ---
Headache HPI - General Chief Complaint: Headache Stated Complaint: migraine,vomiting Time Seen by Provider: 08/11/22 06:03 Source: patient, RN notes reviewed, old records reviewed Mode of arrival: ambulatory Limitations: no limitations - History of Present Illness Initial Comments: Nontoxic-appearing 37-year-old male presents to the emergency room with complaints of a bilateral temporal headache that started yesterday morning. States that he went to work and it did not get better throughout the day. Woke up this morning with the same pain. Does take Subutex for chronic pain and cymbalta. States that he does have a history of similar migraine headaches however his last migraine was over 5 years ago. He does drink alcohol occasionally, does smoke daily. Denies any fevers or abdominal pain or diarrhea. No dental pain. No trauma. No visual disturbances. MD Complaint: headache -: days(s) (1) Onset Description: gradual Location: temporal (bilateral) Severity scale (1-10): 10 Quality: throbbing, similar to previous headaches Consistency: constant Improves With: nothing Associated Symptoms: nausea, vomiting Treatments Prior to Arrival: other (subutex) - Related Data Home Medications Medication Instructions Recorded Confirmed ALPRAZolam [Xanax] 1 mg PO BID 02/11/19 02/14/19 Buprenorphine HCl/Naloxone HCl 0.25 film SL BID 02/11/19 02/14/19 [Suboxone 8 mg-2 mg Sl Film] Previous Rx's Medication Instructions Recorded levETIRAcetam [Keppra] 500 mg PO TID #21 tab 02/11/19 Penicillin V Potassium [Pen Vee K] 500 mg PO QID 7 Days #28 tablet 09/04/19 Clindamycin [Cleocin] 150 mg PO Q8H 7 Days #21 capsule 05/28/20 clindamycin HCL [Clindamycin HCl] 300 mg PO Q8H 7 Days #21 cap 05/28/20 Amoxicillin/Potassium Clav 1 tab PO Q12HR 1 Days #14 tab 06/03/21 [Augmentin 875-125 Tablet] Ondansetron Odt [Zofran ODT] 4 mg PO Q8HR PRN #10 tab 06/03/21 Allergies Allergy/AdvReac Type Severity Reaction Status Date / Time No Known Allergies Allergy Verified 08/11/22 05:44 Review of Systems ROS Statement: Those systems with pertinent positive or pertinent negative responses have been documented in the HPI. ROS Other: All systems not noted in ROS Statement are negative. Past Medical History Past Medical History: Seizure Disorder History of Any Multi-Drug Resistant Organisms: None Reported Past Surgical History: No Surgical Hx Reported Past Psychological History: Anxiety Smoking Status: Current every day smoker Past Alcohol Use History: None Reported Past Drug Use History: Marijuana General Exam Limitations: no limitations General appearance: alert, in no apparent distress Head exam: Present: atraumatic, normocephalic Eye exam: Absent: scleral icterus, conjunctival injection, periorbital swelling Neck exam: Present: full ROM. Absent: tenderness, meningismus Respiratory exam: Present: normal lung sounds bilaterally. Absent: respiratory distress, accessory muscle use Cardiovascular Exam: Present: bradycardia GI/Abdominal exam: Present: soft. Absent: distended, tenderness, rigid Extremities exam: Present: normal capillary refill Back exam: Present: full ROM. Absent: tenderness, paraspinal tenderness, vertebral tenderness Neurological exam: Present: alert, oriented X3 Psychiatric exam: Present: normal affect, normal mood Skin exam: Present: warm, dry, normal color. Absent: cyanosis, diaphoretic, petechiae, pallor Course Vital Signs 08/11/22 08/11/22 05:44 06:47 Temperature 97.9 F Pulse Rate 52 L 62 Respiratory 16 16 Rate Blood Pressure 137/87 137/85 O2 Sat by Pulse 95 97 Oximetry - Reevaluation(s) Reevaluation #1: 08/11/22 07:13 Patient sitting up on cart using phone, states improvement in his headache. Time: 07:13 Medical Decision Making - Medical Decision Making Patient presents with a band type headache since yesterday morning. Denies any trauma. States similar to previous migraine headaches in the past. He has no focal neurological deficits. Denies any trauma. No fevers. No recent surgeries. No nuchal rigidity. Labs show no evidence of leukocytosis, hemoglobin and hematocrit are stable. Electrolytes are unremarkable. He was given IV fluids, Toradol, droperidol and Decadron with relief of his headache. He is agreeable to being discharged home and directed to follow up with his primary care doctor. Case discussed with Dr. Grimaldo Was pt. sent in by a medical professional or institution? @ -No Did you speak to anyone other than the patient for history? @ -No Did you review nursing and triage notes? @ -Yes I agree Were old charts reviewed? @ -No Differential Diagnosis? @ -Differential Headache: Migraine, tension, cluster, carbon monoxide, central venous thrombosis, intercranial hemorrhage, mastoiditis, sinusitis, head injury, this is not meant to be an all-inclusive list. What testing was considered but not performed? (CT, X-rays, U/S, labs)? Why? @ CT was considered if the headache was not resolved with migraine medications, patient has no focal neurological deficits, denies any trauma, no visual changes What meds were considered but not given? Why? @ -None Did you discuss the management of the patient with other professionals? @ -No Did you reconcile home meds? @ -No Was smoking cessation discussed for >3mins.? @ -yes Was critical care preformed (if so, how long)? @ -No Were there social determinants of health that impacted care today? How? (Homelessness, low income, unemployed, alcoholism, drug addiction, transportation, low edu. Level, literacy, decrease access to med. care, fpc, rehab)? @ -Drug addiction history Was there de-escalation of care discussed even if they declined? (Discuss DNR or withdrawal of care, Hospice)? @ -No What co-morbidities impacted this encounter? (DM, HTN, Smoking, COPD, CAD, Cancer, CVA, Hep., AIDS, mental health diagnosis, sleep apnea, morbid obesity)? @ -No Was patient admitted / discharged? @ -Discharged Undiagnosed new problem with uncertain prognosis? @ -[none] Drug Therapy requiring intensive monitoring for toxicity (Heparin, Nitro, Insulin, Cardizem)? @ -No Were any procedures done? @ -No Diagnosis/symptom? @ -Tension headache Acute, or Chronic, or Acute on Chronic? @ -Acute Uncomplicated (without systemic symptoms) or Complicated (systemic symptoms)? @ -Uncomplicated Side effects of treatment? @ -[none] Exacerbation, Progression, or Severe Exacerbation] @ -[no] Poses a threat to life or bodily function? @ -[no] - Lab Data Result diagrams: 08/11/22 06:36 08/11/22 06:37 Lab Results 08/11/22 08/11/22 Range/Units 06:36 06:37 WBC 8.0 (3.8-10.6) k/uL RBC 5.03 (4.30-5.90) m/uL Hgb 15.1 (13.0-17.5) gm/dL Hct 44.5 (39.0-53.0) % MCV 88.5 (80.0-100.0) fL MCH 30.0 (25.0-35.0) pg MCHC 33.9 (31.0-37.0) g/dL RDW 12.0 (11.5-15.5) % Plt Count 151 (150-450) k/uL MPV 8.0 Neutrophils % 55 % Lymphocytes % 29 % Monocytes % 8 % Eosinophils % 6 % Basophils % 1 % Neutrophils # 4.4 (1.3-7.7) k/uL Lymphocytes # 2.3 (1.0-4.8) k/uL Monocytes # 0.6 (0-1.0) k/uL Eosinophils # 0.5 (0-0.7) k/uL Basophils # 0.1 (0-0.2) k/uL Sodium 140 (137-145) mmol/L Potassium 3.8 (3.5-5.1) mmol/L Chloride 104 (98-107) mmol/L Carbon Dioxide 30 (22-30) mmol/L Anion Gap 6 mmol/L BUN 17 (9-20) mg/dL Creatinine 0.84 (0.66-1.25) mg/dL Est GFR (CKD-EPI)AfAm >90 (>60 ml/min/1.73 sqM) Est GFR (CKD-EPI)NonAf >90 (>60 ml/min/1.73 sqM) Glucose 111 H (74-99) mg/dL Calcium 8.9 (8.4-10.2) mg/dL Total Bilirubin 0.6 (0.2-1.3) mg/dL AST 41 (17-59) U/L ALT 24 (4-49) U/L Alkaline Phosphatase 98 (38-126) U/L Total Protein 7.0 (6.3-8.2) g/dL Albumin 4.4 (3.5-5.0) g/dL Disposition Clinical Impression: Tension headache Disposition: HOME SELF-CARE Condition: Good Instructions (If sedation given, give patient instructions): Acute Headache (ED) Additional Instructions: Increase your fluid intake. Tylenol and/or Motrin as needed for any discomfort. Follow-up with your primary care doctor next week. Is patient prescribed a controlled substance at d/c from ED?: No Referrals: Rodriguez Sargent MD [Primary Care Provider] - 1-2 days Time of Disposition: 07:38
[2022-08-11] MEDS ORDERED: KETOROLAC 15 MG/ML 1 ML VIAL IVP STA (06:26)
[2022-08-11] MEDS ORDERED: SODIUM CHLORIDE 0.9% 1,000 ML IV STA (06:26)
[2022-08-11] MEDS ORDERED: DEXAMETHASONE SOD PHOSPHATE 10 MG/ML 1 ML VIAL IVP STA (06:26)
[2022-08-11 06:49] LABS: Basophils # (A) 0.1 k/uL (0-0.2); Basophils % (A) 1 %; Eosinophils # (A) 0.5 k/uL (0-0.7); Eosinophils % (A) 6 %; HCT 44.5 % (39.0-53.0); HGB 15.1 gm/dL (13.0-17.5); Lymphocytes # (A) 2.3 k/uL (1.0-4.8); Lymphocytes % (A) 29 %; MCHC 33.9 g/dL (31.0-37.0); MCV 88.5 fL (80.0-100.0); Monocytes # (A) 0.6 k/uL (0-1.0); Monocytes % (A) 8 %; Neutrophils # (A) 4.4 k/uL (1.3-7.7); Neutrophils % (A) 55 %; Platelet Count 151 k/uL (150-450); RBC 5.03 m/uL (4.30-5.90)
[2022-08-11 06:57] LABS: ALT 24 U/L (4-49); AST 41 U/L (17-59); African American GFR (CKD) >90 (>60 ml/min/1.73 sqM); Albumin 4.4 g/dL (3.5-5.0); Alkaline Phosphatase 98 U/L (38-126); Anion Gap 6 mmol/L; Blood Urea Nitrogen 17 mg/dL (9-20); Calcium 8.9 mg/dL (8.4-10.2); Carbon Dioxide 30 mmol/L (22-30); Chloride 104 mmol/L (98-107); Glucose 111 mg/dL (74-99); Non-African American GFR(CKD) >90 (>60 ml/min/1.73 sqM); Potassium 3.8 mmol/L (3.5-5.1); Sodium 140 mmol/L (137-145); Total Bilirubin 0.6 mg/dL (0.2-1.3)
[2022-08-11 08:01] VITALS: BP 124/76; PULSE 61; TEMP 97.8
== END 2022-08-11 08:01 | disposition home or self-care (01) ==
LOC: EC 05:31
DX: G44.209 Tension-type headache, unspecified, not intractable (principal); F12.90 Cannabis use, unspecified, uncomplicated; F41.9 Anxiety disorder, unspecified; F17.200 Nicotine dependence, unspecified, uncomplicated; Z79.899 Other long term (current) drug therapy
CPT/HCPCS: 36415; 80053; 85025; 99283; 96374; 96375; 96361; J1100; J1885; J1790

== ENCOUNTER 2025-01-05 08:07 | Emergency (ER) | payer BC ==
[2025-01-05 08:32] VITALS: RESP 16
--- NOTE | 2025-01-05 08:42 | ED ---
ENT HPI - General Chief complaint: Dental/Oral Stated complaint: dental Time Seen by Provider: 01/05/25 08:09 Source: patient, RN notes reviewed Mode of arrival: ambulatory Limitations: no limitations - History of Present Illness Initial comments: 39-year-old male presents to the emergency department with complaint abdominal pain. Patient is couple days right lower mild swelling no fevers or chills no difficulty swallowing patient tried to go to the dental clinic today but they had no openings. Patient was advised to emergency room for antibiotics. - Related Data Home Medications Medication Instructions Recorded Confirmed ALPRAZolam [Xanax] 1 mg PO BID 02/11/19 02/14/19 Buprenorphine HCl/Naloxone HCl 0.25 film SL BID 02/11/19 02/14/19 [Suboxone 8 mg-2 mg Sl Film] Previous Rx's Medication Instructions Recorded levETIRAcetam [Keppra] 500 mg PO TID #21 tab 02/11/19 Penicillin V Potassium [Pen Vee K] 500 mg PO QID 7 Days #28 tablet 09/04/19 Clindamycin [Cleocin] 150 mg PO Q8H 7 Days #21 capsule 05/28/20 clindamycin HCL [Clindamycin HCl] 300 mg PO Q8H 7 Days #21 cap 05/28/20 Amoxicillin/Potassium Clav 1 tab PO Q12HR 1 Days #14 tab 06/03/21 [Augmentin 875-125 Tablet] Ondansetron Odt [Zofran ODT] 4 mg PO Q8HR PRN #10 tab 06/03/21 Allergies Allergy/AdvReac Type Severity Reaction Status Date / Time No Known Allergies Allergy Verified 08/11/22 05:44 Review of Systems ROS Statement: Those systems with pertinent positive or pertinent negative responses have been documented in the HPI. ROS Other: All systems not noted in ROS Statement are negative. Past Medical History Past Medical History: Seizure Disorder History of Any Multi-Drug Resistant Organisms: None Reported Past Surgical History: No Surgical Hx Reported Past Psychological History: Anxiety Smoking Status: Current every day smoker Past Alcohol Use History: None Reported Past Drug Use History: Marijuana General Exam Limitations: no limitations General appearance: alert, in no apparent distress Head exam: Present: atraumatic, normocephalic, normal inspection Eye exam: Present: normal appearance, PERRL, EOMI. Absent: scleral icterus, conjunctival injection, periorbital swelling ENT exam: Present: mucous membranes moist. Absent: normal oropharynx (Dentition poor no drainable abscess,) Course Vital Signs 01/05/25 08:29 Temperature 97.3 F L Pulse Rate 88 Respiratory 16 Rate Blood Pressure 124/79 O2 Sat by Pulse 98 Oximetry Medical Decision Making - Medical Decision Making Was pt. sent in by a medical professional or institution (, WILL, SPECIAL PROCEDURES TECH, urgent care, hospital, or penitentiary...) When possible be specific @ -No Did you speak to anyone other than the patient for history (EMS, parent, family, police, friend...)? What history was obtained from this source @ -No Did you review nursing and triage notes (agree or disagree)? Why? @ -I reviewed and agree with nursing and triage notes Were old charts reviewed (outside hosp., previous admission, EMS record, old EKG, old radiological studies, urgent care reports/EKG's, penitentiary records)? Report findings @ -No old charts were reviewed Differential Diagnosis (chest pain, altered mental status, abdominal pain women, abdominal pain men, vaginal bleeding, weakness, fever, dyspnea, syncope, headache, dizziness, GI bleed, back pain, seizure, CVA, palpatations, mental health, musculoskeletal)? @ -Dental pain dental infection dental abscess EKG interpreted by me (3pts min.). @ -None X-rays interpreted by me (1pt min.). @ -None done CT interpreted by me (1pt min.). @ -None done U/S interpreted by me (1pt. min.). @ -None done What testing was considered but not performed or refused? (CT, X-rays, U/S, labs)? Why? @ -None What meds were considered but not given or refused? Why? @ -None Did you discuss the management of the patient with other professionals (professionals i.e. , WILL, SPECIAL PROCEDURES TECH, lab, RT, psych nurse, social sciences lecturer, deployment engineer, teacher, civil preparedness training officer, leather case finisher)? Give summary @ -No Was smoking cessation discussed for >3mins.? @ -No Was critical care preformed (if so, how long)? @ -No Were there social determinants of health that impacted care today? How? (Homelessness, low income, unemployed, alcoholism, drug addiction, transportation, low edu. Level, literacy, decrease access to med. care, halfway, rehab)? @ -No Was there de-escalation of care discussed even if they declined (Discuss DNR or withdrawal of care, Hospice)? DNR status @ -No What co-morbidities impacted this encounter? (DM, HTN, Smoking, COPD, CAD, Cancer, CVA, ARF, Chemo, Hep., AIDS, mental health diagnosis, sleep apnea, morbid obesity)? @ -None Was patient admitted / discharged? Hospital course, mention meds given and route, prescriptions, significant lab abnormalities, going to OR and other pertinent info. @Discharge patient has right lower abdominal infection no drainable abscess. Undiagnosed new problem with uncertain prognosis? @ -No Drug Therapy requiring intensive monitoring for toxicity (Heparin, Nitro, Insulin, Cardizem)? @ -No Were any procedures done? @ -No Diagnosis/symptom? @ -Dental infection tooth ache Acute, or Chronic, or Acute on Chronic? @ -Acute Uncomplicated (without systemic symptoms) or Complicated (systemic symptoms)? @ -Uncomplicated Side effects of treatment? @ -No Exacerbation, Progression, or Severe Exacerbation? @ -No Poses a threat to life or bodily function? How? (Chest pain, [place], VT, pneumonia, PE, COPD, DKA, ARF, appy, cholecystitis, CVA, Diverticulitis, Homicidal, Suicidal, threat to staff... and all critical care pts) @ -No Disposition Clinical Impression: Toothache, Dental infection Disposition: HOME SELF-CARE Condition: Stable Instructions (If sedation given, give patient instructions): Toothache (ED) Additional Instructions: Please return to the Emergency Department if symptoms worsen or any other concerns. Is patient prescribed a controlled substance at d/c from ED?: No Referrals: Wil Angeles MD [Primary Care Provider] - 1-2 days Time of Disposition: 08:42
[2025-01-05 09:05] VITALS: BP 122/86; PULSE 84; TEMP 97.8
== END 2025-01-05 09:03 | disposition home or self-care (01) ==
LOC: EC 08:07
DX: K04.7 Periapical abscess without sinus (principal); K08.89 Other specified disorders of teeth and supporting structures; F17.200 Nicotine dependence, unspecified, uncomplicated
CPT/HCPCS: 99282